=== PATIENT | female | born 2000 | race Caucasian/White ===

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

== ENCOUNTER → 2019-02-25 09:01 | Outpatient (CLI) | payer BC, SELFPAY ==
[2017-09-25 15:05] VITALS: BMI 21.2
--- NOTE | 2019-02-25 09:07 | US_ITS ---
STUDY: ULTRASOUND OF THE FEMALE PELVIS - COMPLETE REASON FOR EXAM: Female, 19 years old. Right lower quadrant pain. LMP: 02/01/2019 TECHNIQUE: Transabdominal TECHNICAL QUALITY: Adequate. COMPARISON: None. FINDINGS: The uterus is anteverted and is in a midline position. The uterus measures 6.5 x 3.9 x 2.4 cm. Normal uterine cervix. The endometrium measures 4 mm in thickness, and is hyperechoic. There is no demonstrated endometrial mass. There is no demonstrated myometrial mass. I.U.D. - The patient does not have an I.U.D. The right ovary is visualized. The right ovary measures 2.0 x 2.1 x 1.3 cm. There is no right ovarian cyst or ovarian mass. There is no visualized right adnexal mass or complex lesion. There is normal arterial and normal venous vascularity. The left ovary is visualized. The left ovary measures 1.9 x 2.4 x 1.6 cm. There is no left ovarian cyst or ovarian mass. There is no visualized left adnexal mass or complex lesion. There is normal arterial and normal venous vascularity. There is minimal fluid in the cul-de-sac. The pre void volume of the bladder was 353 ml. Normal bladder contour. Polycystic ovary disease: No. US/Pelvic (Non ) IMPRESSION: Normal female pelvis. Electronically Signed: Butch Sorensen MD at 10:53 EDT , Service support ,
--- NOTE | 2019-02-25 09:36 | US_ITS ---
STUDY: ABDOMINAL ULTRASOUND - RIGHT UPPER QUADRANT REASON FOR VISIT: Female, 19 years old. Right upper quadrant pain. TECHNIQUE: Ultrasound evaluation of the right upper quadrant was performed with real-time and static larose-scale imaging. TECHNICAL QUALITY: Adequate. COMPARISON: CT dated 09/23/2017 FINDINGS: Liver: The liver measures 13.3 cm. There is normal echogenicity of the liver. The bile ducts are within normal limits. There is hepatic color flow. The direction of portal flow is hepatopetal. There is no demonstrated mass lesion. Gallbladder: Normal distended gallbladder. The gallbladder wall measures 3 mm. There is a negative sonographic Rawls's sign. There is no pericholecystic fluid. There are no gallstones. Common Bile Duct (C.B.D.): The common bile duct measures 2 mm. Pancreas: Normal size of the head, body and tail of the pancreas. There is normal echogenicity of the pancreas. There is no demonstrated pancreatic mass or cyst. Right Kidney: Normal size of the right kidney. The right kidney measures 9.9 cm. Normal renal cortex. There is no demonstrated renal mass or cyst. There is a 5 mm nonobstructing right renal stone. There is no right hydronephrosis. US/Abdomen Limited IMPRESSION: 5 mm nonobstructing right renal stone. No hydronephrosis. Otherwise, unremarkable right upper quadrant ultrasound. Electronically Signed: Brian Guerrier, at 19:51 EDT Tel , Service support ,
== END ==
PROVIDERS: Family Provider Family Medicine; PCP Family Medicine; Referring Provider Family Medicine; Visit Provider Family Medicine
DX: R10.9 Unspecified abdominal pain (principal)
CPT/HCPCS: 76705; 76856; 93976; J7030; A4216

== ENCOUNTER → 2019-08-18 10:08 | Outpatient (CLI) | payer BC, SELFPAY ==
[2019-07-14 10:27] VITALS: BMI 21.2
--- NOTE | 2019-08-18 10:12 | MRI_ITS ---
STUDY: MRI BILATERAL HIPS T PELVIS REASON FOR EXAM: Right-sided pain with twisting motion, evaluate for sports hernia. TECHNIQUE: Standardized fat and water weighted pulse sequences were obtained in all 3 orthogonal planes. COMPARISON: None. FINDINGS: RIGHT HIP Normal hip joint without articular joint space narrowing. Normal right acetabulum. Normal right labrum. Normal right femoral head. Normal right femoral neck and intratrochanteric region. Normal right gluteus minimus, medius and iliopsoas tendons and distal insertions. Normal right superior and inferior pubic rami. Normal right pubic symphysis. There specifically is no secondary cleft or other demonstrated abnormality of the rectus abdominis-adductor longus aponeurosis to indicate sports hernia. Normal right ischial tuberosity. Normal origin of the right hamstring tendons. Normal visualized right iliac wing, sacroiliac joint, and sacral ala. There is no bone edema at the right superior iliac spine. Normal visualized soft tissue structures of the pelvis. LEFT HIP Normal left hip joint without articular joint space narrowing. Normal left acetabulum. Normal left labrum. Normal left femoral head. Normal left femoral neck and intratrochanteric region. Normal left gluteus minimus, medius and iliopsoas tendons and distal insertions. Normal left superior and inferior pubic rami. Normal left pubic symphysis. Normal left ischial tuberosity. Normal origin of the left hamstring tendons. Normal visualized left iliac wing, sacroiliac joint, and sacral ala. Normal visualized soft tissue structures of the pelvis. MRI/Pelvis (Routine) IMPRESSION: Normal MRI of the pelvis/bilateral hips without demonstrated tear of the rectus abdominis-adductor longus aponeurosis (no evidence of sports hernia). Electronically Signed: Saulo Clark MD at 10:09 EDT Tel , Service support ,
--- NOTE | 2019-08-18 10:12 | MRI_ITS ---
STUDY: MRI RIGHT HIP REASON FOR EXAM: Right-sided pain with twisting motion. TECHNIQUE: Standardized fat and water weighted pulse sequences were obtained in all 3 orthogonal planes. COMPARISON: None. FINDINGS: Normal hip joint without articular joint space narrowing. Normal acetabulum. Normal labrum. Normal femoral head. Normal femoral neck and intratrochanteric region. Normal gluteus minimus, medius and iliopsoas tendons and distal insertions. There is no trochanteric, iliopsoas or iliopectineal bursitis. Normal superior and inferior pubic rami. Normal pubic symphysis. Normal ischial tuberosity. Normal origin of the hamstring tendons. Normal visualized iliac wing, sacroiliac joint, and sacral ala. Normal visualized soft tissue structures of the pelvis. MRI/Lower Ext Joint Only (Routine) IMPRESSION: Normal MRI of the right hip. Electronically Signed: Saulo Clark MD at 10:10 EDT Tel , Service support ,
== END ==
PROVIDERS: Family Provider Family Medicine; PCP Family Medicine; Referring Provider Family Medicine; Visit Provider Family Medicine
DX: S39.81XA Other specified injuries of abdomen, initial encounter (principal); M86.9 Osteomyelitis, unspecified
CPT/HCPCS: 72195; 73721

== ENCOUNTER → 2020-06-22 17:06 | Outpatient (CLI) | payer BC, SELFPAY ==
[2020-03-07 17:29] VITALS: BMI 21.2
--- NOTE | 2020-06-22 17:11 | RAD_ITS ---
STUDY: X-RAY - LUMBAR SPINE REASON FOR EXAM: Female, 20 years old. PAIN DUE TO INJURY 2 WEEKS AGO. LOW BACK PAIN THAT SPREADS A LITTLE TO LEFT SIDE. TECHNIQUE: 5 view(s) of the lumbar spine were obtained. COMPARISON: None FINDINGS: Normal lumbar lordosis. There is no substantial scoliosis. There is a normal alignment of the vertebrae. Normal vertebral bodies and endplates. Normal disc space heights. The soft tissue structures are unremarkable. RAD/L/S Spine Min 4 Views IMPRESSION: Normal x-ray examination of the lumbar spine. Electronically Signed: Ahmet Nino DO at 17:42 EDT Tel [phone], Service support ,
--- NOTE | 2020-06-22 17:20 | RAD_ITS ---
STUDY: X-RAY - THORACIC SPINE REASON FOR EXAM: Female, 20 years old. PAIN DUE TO INJURY 2 WEEKS AGO. LOW BACK PAIN THAT SPREADS A LITTLE TO LEFT SIDE. TECHNIQUE: 3 view(s) of the thoracic spine were obtained. COMPARISON: None. FINDINGS: Normal kyphosis of the thoracic spine. There is trace upper thoracic scoliosis. Normal thoracic vertebrae and endplates. Normal disc space heights. The soft tissue structures are unremarkable. RAD/Thoracic Spine 3 Views IMPRESSION: No acute bony injury of the thoracic spine. Electronically Signed: Ahmet Nino DO at 17:40 EDT Tel [phone], Service support ,
== END ==
PROVIDERS: PCP Family Medicine; Referring Provider Family Medicine; Visit Provider Family Medicine
DX: M54.6 Pain in thoracic spine (principal)
CPT/HCPCS: 72072; 72110

== ENCOUNTER → 2020-07-25 09:51 | Outpatient (CLI) | payer BC, SELFPAY ==
[2020-03-07 17:29] VITALS: BMI 21.2
== END ==
PROVIDERS: PCP Family Medicine; Referring Provider Family Medicine; Visit Provider Family Medicine
DX: Z20.828 Contact with and (suspected) exposure to other viral communicable diseases (principal)
CPT/HCPCS: 87635; C9803; U0003

== ENCOUNTER → 2020-09-06 | Outpatient (CLI) | payer BC, SELFPAY ==
[2020-03-07 17:29] VITALS: BMI 21.2
[2020-09-12 15:37] LABS: HPV Reflexed? NOT INDICATED
== END | disposition home or self-care (01) ==
LOC: LABSPEC 13:50
PROVIDERS: PCP Family Medicine; Visit Provider Student in an Organized Health Care Education/Training Program
DX: Z12.4 Encounter for screening for malignant neoplasm of cervix (principal)
CPT/HCPCS: 88175; G0145

== ENCOUNTER 2021-03-13 08:22 | Outpatient (RCR) | payer BC, SELFPAY ==
[2020-03-07 17:29] VITALS: BMI 21.2
== END 2021-04-17 23:59 ==
LOC: IMMUN 08:22
PROVIDERS: PCP Family Medicine; Referring Provider Family Medicine; Visit Provider Family Medicine
DX: Z23 Encounter for immunization (principal)
CPT/HCPCS: 0001A; 91300

== ENCOUNTER → 2021-10-17 | Outpatient (CLI) | payer BC, SELFPAY | END | disposition home or self-care (01) | PROVIDERS: PCP Family Medicine; Referring Provider Family Medicine; Visit Provider Family Medicine | DX: Z20.822 Contact with and (suspected) exposure to COVID-19 (principal) | CPT/HCPCS: 87633; 87635; U0005; U0003 ==

== ENCOUNTER 2021-11-14 07:55 | Outpatient (CLI) | payer BC, SELFPAY | END 2021-11-14 23:59 | disposition short-term general hospital (02) | LOC: LABSPEC 11-15 09:04 | PROVIDERS: PCP Family Medicine; Visit Provider Family Medicine | DX: Z20.828 Contact with and (suspected) exposure to other viral communicable diseases (principal) | CPT/HCPCS: 87635; U0003; U0005 ==

== ENCOUNTER 2021-12-25 08:47 | Day surgery (SDC) | payer BC, SELFPAY ==
[2021-12-25] VITALS (7 sets, daily range): BP systolic 87–124; BP diastolic 46–72; PULSE 75–115; RESP 18; TEMP 36.4–37.1; O2SAT 97–100; BMI 22.8
--- NOTE | 2021-12-25 09:11 | PCM.HP.BLA ---
History and Physical Date of Admission: 12/25/21 21 F who presents to the office today for 5 wk f/u SIBO, IBS-D Budesonide helps with keeping stool formed so she is very pleased with that. Other symptoms persist. Was never able to get prescription digestive enzymes. Thought she wasn't supposed to take xifaxan. Less vomiting, was vomiting weekly. Vomited once since last visit, had migraine that day. Still has a daily headache; more severe SALDIVAR 1-2x per week needs to take something for the pain--takes 200-400 mg ibuprofen then; migraines not often, did have one this week--increases caffeine plus ibuprofen for migraine. Still has nausea constantly, since high school bas had nausea and frequent vomiting. The vomiting is usually first thing in morning, then face is swollen. With the more frequent vomiting this year, the facial swelling began with each episode of emesis, generalized facial swelling, redness (red dots). No pruritus. No hives. Left side pain is worse--left lower/mid abd, no radiating pain, feels like stabbing. Started on right side age 17, then moved to left side about a year ago. Just had the pain for a week constantly, always at least 2 days. Worse with exercise. No change with diet, no change with BM. Not cyclical with menses. Nausea is worse with the pain. Colonoscopy 2018, and EGD might have been same time; prior to that had EGD in 2014. Loud belches, frequent hiccups. Only very rare heartburn. Hx of C diff x 1 ROS Const Constitutional: Positive for fatigue and headache(s) Eyes Eyes: Positive for blurry vision ENT ENT: Positive for headache(s) Gastro GI: Positive for abdominal pain, belching, change in bowel habits, excessive flatus, nausea/dyspepsia and vomiting Neuro Neurology: Positive for headache(s) Psych Psychiatric: Positive for anxiety Endo Endocrine: Positive for fatigue Exam Const General: cooperative, healthy appearing, comfortable, no acute distress, well developed and well groomed Quality Reporting Tobacco Screening ([facility]) Smoking Status: Never smoker Assessment and Plan Assessment and Plan (1) Nausea vomiting and diarrhea: Status: Acute (2) Abdominal pain: Status: Acute Plan: 21 yr old female with long hx of chronic nausea, vomiting and diarrhea. Diarrhea has improved significantly with budesonide. Vomiting is better too, but nausea persists. Upper and lower endoscopy with Dr Valentin since symptoms persist Scopolamine patch for nausea/vomiting, discussed possible side effects Continue budesonide 6 mg daily since efficacious for her diarrhea f/u 2 wks after endoscopy Plan Details Other Medications: New: scopolamine base 1 patch transdermal Q72H 10 ea 0RF Refilled: budesonide ER 6 mg (2 x 3 mg) PO DAILY 60 ea 1RF I have re-examined the patient. There are no clinical changes since date of exam.
[2021-12-25 09:14] LABS: Internal QC Validated? YES +Cl - CLEAR BKGD; Pregnancy, Urine Negative Negative
--- NOTE | 2021-12-25 10:00 | IMM_PTH ---
PATIENT: ASHA SCALES LOC: EN U#:[id number] AGE/SX: ROOM: RE12/25/[address]: Dr. Nima Valentin DO : 2000 BED: DIS: 12/25/2021 SPEC #: [id number] RECD: 12/26/21 13:43 STATUS: CHLOE REQ #: [id number] MELISSA: 12/25/21 10:[address]: Nima Valentin DEPT: IMMUNOHISTOCHEMISTRY RECD BY: lAee Emerson ENTERED: 12/26/21 13:44 SP TYPE: IMMUNO OTHR DR: Dr. Richa Russell MD Tissues: B - Stomach, NOS Procedures: H Pylori (initial) [facility]YSICIAN [facility] INSTIT[facility] [address] [address] SPECIMEN INFORMATION: Tissue Source: B ? Antrum biopsy Clinical Info: Nausea, vomiting, diarrhea, abdominal pain Specimen Number: [id number] CPT code: 58343 METHODOLOGY: Deparaffinized sections of prefer/formalin-fixed tissue or PAP/DQ stained slides are incubated with monoclonal/polyclonal antibodies/oligonucleotide probes. Localization is made via biotin free immunoperoxidase method. Appropriate controls are performed and reacted as expected. Results on target cell population are indicated in the following table: RESULTS: ANTIBODY / CLONE RESULT Block B H Pylori (polyclonal) negative These tests were developed and their performance characteristics determined by [facility]. They may not have been cleared or approved by the U.S. Food and Drug Administration. The FDA has determined that such clearance or approval is not necessary. INTERPRETATION: B. Antrum biopsy: Negative for Helicobacter pylori organisms. SJ:rosa 12/27/2021
--- NOTE | 2021-12-25 10:00 | EGD_PTH ---
PATIENT: ASHA SCALES LOC: EN U#:[id number] AGE/SX: 21/ ROOM: RE12/25/[address]: Dr. Nima Valentin DO : 2000 BED: DIS: 12/25/2021 SPEC #: [id number] RECD: 12/25/21 13:39 STATUS: CHLOE REJuan F #: [id number] MELISSA: 12/25/21 10:[address]: Nima Valentin DEPT: SURGICAL PATHOLOGY RECD BY: Flor Hoskins ENTERED: 12/26/21 07:34 SP TYPE: EGD BIOPSY OT DR: Dr. Richa Russell MD Tissues: A - Duodenum, NOS B - Gastric mucous membrane C - Esophagus, NOS D - Ileum, NOS E - COLON BIOPSY Procedures: Special Stain Group II Surgery Specimen Level IV Alcian Blue/PAS (control) HEADER OPERATION: [place] [place] with biopsy PRE-OP DIAGNOSIS: Nausea, vomiting, diarrhea, abdominal pain TISSUE SUBMITTED: A ? Duodenum biopsy, B ? Antrum biopsy for histo and H. pylori, C ? Distal esophagus biopsy, D ? Terminal ileum biopsy, eosinophilic gastroenteritis, E ? Random colonic biopsy, eosinophilic gastroenteritis MICROSCOPIC DIAGNOSIS A. Duodenum, biopsy: Fragments of duodenal mucosa, no pathologic diagnosis. B. Antrum, biopsy: Mild gastritis. See microscopic description and comment. C. Distal esophagus, biopsy: Fragments of gastroesophageal mucosa with mild chronic inflammation. Intestinal metaplasia (goblet cell metaplasia) is not identified. See comment. D. Terminal ileum, biopsy: Fragments of small intestinal mucosa, no pathologic diagnosis. E. Colon, random biopsy: Fragments of colonic mucosa, no pathologic diagnosis. SJ:rosa 12/27/2021 COMMENT B. The results of immunohistochemistry for Helicobacter pylori will be reported separately ([id number]). C. Alcian blue/PAS stain with matched control is used in the evaluation of the specimen. MICROSCOPIC DESCRIPTION Slides are reviewed. B. The specimen shows fragments of gastric mucosa with chronic inflammatory cell infiltrates in the lamina propria consisting of lymphocytes and plasma cells, consistent with mild chronic gastritis. GROSS DESCRIPTION A - Received in fixative is one container labeled with the patient's name and designated duodenum biopsy. The specimen consists of multiple irregular fragments of light napoles soft tissue that in aggregate measure 1 x 0.5 x 0.1 cm. The specimen is totally submitted in one cassette. B - Received in fixative is one container labeled with the patient's name and designated antrum biopsy. The specimen consists of multiple irregular fragments of light napoles soft tissue that in aggregate measure 0.6 x 0.5 x 0.1 cm. The specimen is totally submitted in one cassette. C - Received in fixative is one container labeled with the patient's name and designated distal esophagus biopsy. The specimen consists of multiple irregular fragments of light napoles soft tissue that in aggregate measure 1 x 0.3 x 0.1 cm. The specimen is totally submitted in one cassette. D - Received in fixative is one container labeled with the patient's name and designated terminal ileum biopsy. The specimen consists of multiple irregular fragments of light napoles soft tissue that in aggregate measure 1 x 0.4 x 0.1 cm. The specimen is totally submitted in one cassette. E - Received in fixative is one container labeled with the patient's name and designated random colonic biopsy. The specimen consists of multiple irregular fragments of light napoles soft tissue that in aggregate measure 2.5 x 0.5 x 0.1 cm. The specimen is totally submitted in one cassette. / SJ:rg 12/26/2021 TC:3 CPT: 62539 x5, 54997
--- NOTE | 2021-12-25 10:37 | OP.EGD_ITS ---
Patient Name: Sol Holman Procedure Date: 12/25/2021 10:10 AM Date of : 2000 Age: 21 Procedure: Upper GI endoscopy Indications: Epigastric abdominal pain Providers: Nima Valentin DO Medicines: See the Anesthesia note for documentation of the administered medications Patient Profile: This is a 21 year old female. Refer to note in patient chart for documentation of history and physical. Patient has symptoms of acute epigastric abdominal pain. Complications: No immediate complications. Procedure: Pre-Anesthesia Assessment: - Prior to the procedure, a History and Physical was performed, and patient medications and allergies were reviewed. The patient is competent. The risks and benefits of the procedure and the sedation options and risks were discussed with the patient. All questions were answered and informed consent was obtained. Patient identification and proposed procedure were verified in the pre-procedure area. Mental Status Examination: alert and oriented. Airway Examination: normal oropharyngeal airway and neck mobility. Respiratory Examination: clear to auscultation. CV Examination: normal. Prophylactic Antibiotics: The patient does not require prophylactic antibiotics. Prior Anticoagulants: The patient has taken no previous anticoagulant or antiplatelet agents. ASA Grade Assessment: II - A patient with mild systemic disease. After reviewing the risks and benefits, the patient was deemed in satisfactory condition to undergo the procedure. The anesthesia plan was to use moderate sedation / analgesia (conscious sedation). Immediately prior to administration of medications, the patient was re-assessed for adequacy to receive sedatives. The heart rate, respiratory rate, oxygen saturations, blood pressure, adequacy of pulmonary ventilation, and response to care were monitored throughout the procedure. The physical status of the patient was re-assessed after the procedure. After obtaining informed consent, the endoscope was passed under direct vision. Throughout the procedure, the patient's blood pressure, pulse, and oxygen saturations were monitored continuously. The Colonoscope was introduced through the mouth, and advanced to the second part of duodenum. The upper GI endoscopy was accomplished without difficulty. The patient tolerated the procedure well. Moderate Sedation: Moderate (conscious) sedation was administered by the endoscopy nurse and supervised by the endoscopist. The following parameters were monitored: oxygen saturation, heart rate, blood pressure, and response to care. Total physician intraservice time was 2 minutes. Scope In: 10:23:15 AM Scope Out: 10:32:02 AM Total Procedure Duration Time 0 hours 8 minutes 47 seconds Findings: LA Grade A (one or more mucosal breaks less than 5 mm, not extending between tops of 2 mucosal folds) esophagitis with no bleeding was found 34 to 35 cm from the incisors. Biopsies were taken with a cold forceps for histology. Verification of patient identification for the specimen was done. Estimated blood loss was minimal. The entire examined stomach was normal. Biopsies were taken with a cold forceps for histology. Verification of patient identification for the specimen was done. Estimated blood loss was minimal. The second portion of the duodenum was normal. Biopsies were taken with a cold forceps for histology. Verification of patient identification for the specimen was done. Estimated blood loss was minimal. Impression: - LA Grade A reflux esophagitis. Biopsied. - Normal stomach. Biopsied. - Normal second portion of the duodenum. Biopsied. Recommendation: - Discharge patient to home. - Resume previous diet. - Return to my office. - Continue present medications. Procedure Code(s): --- Professional --- 50503, Esophagogastroduodenoscopy, flexible, transoral; with biopsy, single or multiple CPT copyright 2017 [employer]. All rights reserved. The codes documented in this report are preliminary and upon program supervisor review may be revised to meet current compliance requirements. Nima Valentin DO 12/25/2021 10:37:01 AM This report has been signed electronically. Number of Addenda: 1 Note Initiated On: 12/25/2021 10:10 AM Addendum Number: 1 Addendum Date: 07/28/2022 6:46:12 AM MAC was used for sedation during this procedure. Nima Valentin DO 07/28/2022 6:46:17 AM This report has been signed electronically.
--- NOTE | 2021-12-25 10:38 | OP.CCLET_ITS ---
07/28/2022 Richa Russell [place] [id number] [place] [address] Re : Upper GI endoscopy procedure for Sol Georgeaddiekip Dear Dr. Russell This procedure was performed on Thursday, December 25, 2021. My impressions and recommendations are as follows: Impressions : - LA Grade A reflux esophagitis. Biopsied. - Normal stomach. Biopsied. - Normal second portion of the duodenum. Biopsied. Recommendations : - Discharge patient to home. - Resume previous diet. - Return to my office. - Continue present medications. My findings are described in the full procedure note, which is enclosed. If I can be of further assistance, please feel free to contact me at . Sincerely, Nima Valentin, 12/25/2021 10:37:01 AM This report has been signed electronically.
--- NOTE | 2021-12-25 11:04 | OP.COLON_ITS ---
Patient Name: Sol Holman Procedure Date: 12/25/2021 10:32 AM Date of : 2000 Age: 21 Procedure: Colonoscopy Indications: Generalized abdominal pain, Incidental abdominal pain noted Providers: Nima Valentin DO Medicines: See the Anesthesia note for documentation of the administered medications Patient Profile: This is a 21 year old female. Refer to note in patient chart for documentation of history and physical. Patient has symptoms of acute epigastric abdominal pain. Last Colonoscopy: none. The patient's first colonoscopy is today. Complications: No immediate complications. Procedure: Pre-Anesthesia Assessment: - Prior to the procedure, a History and Physical was performed, and patient medications and allergies were reviewed. The patient is competent. The risks and benefits of the procedure and the sedation options and risks were discussed with the patient. All questions were answered and informed consent was obtained. Patient identification and proposed procedure were verified in the pre-procedure area. Mental Status Examination: alert and oriented. Airway Examination: normal oropharyngeal airway and neck mobility. Respiratory Examination: clear to auscultation. CV Examination: normal. Prophylactic Antibiotics: The patient does not require prophylactic antibiotics. Prior Anticoagulants: The patient has taken no previous anticoagulant or antiplatelet agents. ASA Grade Assessment: II - A patient with mild systemic disease. After reviewing the risks and benefits, the patient was deemed in satisfactory condition to undergo the procedure. The anesthesia plan was to use moderate sedation / analgesia (conscious sedation). Immediately prior to administration of medications, the patient was re-assessed for adequacy to receive sedatives. The heart rate, respiratory rate, oxygen saturations, blood pressure, adequacy of pulmonary ventilation, and response to care were monitored throughout the procedure. The physical status of the patient was re-assessed after the procedure. After I obtained informed consent, the scope was passed under direct vision. Throughout the procedure, the patient's blood pressure, pulse, and oxygen saturations were monitored continuously. The Colonoscope was introduced through the anus and advanced to the terminal ileum. The colonoscopy was performed without difficulty. The patient tolerated the procedure well. The quality of the bowel preparation was good. Moderate Sedation: Moderate (conscious) sedation was administered by the endoscopy nurse and supervised by the endoscopist. The patient's oxygen saturation, heart rate, blood pressure and response to care were monitored. Total physician intraservice time was 15 minutes. Scope In: 10:40:12 AM Scope Withdrawal Time 0 hours 11 minutes 39 seconds Scope Out: 10:57:40 AM Total Procedure Duration Time 0 hours 17 minutes 28 seconds Findings: The perianal and digital rectal examinations were normal. The colon (entire examined portion) appeared normal. Biopsies for histology were taken with a cold forceps from the entire colon for evaluation of microscopic colitis. Verification of patient identification for the specimen was done. Estimated blood loss was minimal. The terminal ileum appeared normal. Biopsies were taken with a cold forceps for histology. Verification of patient identification for the specimen was done. Estimated blood loss was minimal. Impression: - The entire examined colon is normal. Biopsied. - The examined portion of the ileum was normal. Biopsied. Recommendation: - Discharge patient to home. - Resume previous diet. - Continue present medications. - Await pathology results. - Repeat colonoscopy in 5 years for surveillance based on pathology results. - Return to GI office. Procedure Code(s): --- Professional --- 03944, Colonoscopy, flexible; with biopsy, single or multiple 06243, 59, Moderate sedation services provided by the same physician or other qualified health critical care nurse specialist performing the diagnostic or therapeutic service that the sedation supports, requiring the presence of an independent trained observer to assist in the monitoring of the patient's level of consciousness and physiological status; initial 15 minutes of intraservice time, patient age 5 years or older CPT copyright 2017 [employer]. All rights reserved. The codes documented in this report are preliminary and upon printing assistant review may be revised to meet current compliance requirements. Nima Valentin DO 12/25/2021 11:03:53 AM This report has been signed electronically. Number of Addenda: 1 Note Initiated On: 12/25/2021 10:32 AM Addendum Number: 1 Addendum Date: 07/28/2022 6:46:24 AM MAC was used for sedation during this procedure. Nima Valentin DO 07/28/2022 6:46:30 AM This report has been signed electronically.
--- NOTE | 2021-12-25 11:05 | OP.CCLET_ITS ---
07/28/2022 Richa Russell [facility] [address] [place] [address] Re : Colonoscopy procedure for Sol Holman Dear Dr. Russell This procedure was performed on Saturday, December 25, 2021. My impressions and recommendations are as follows: Impressions : - The entire examined colon is normal. Biopsied. - The examined portion of the ileum was normal. Biopsied. Recommendations : - Discharge patient to home. - Resume previous diet. - Continue present medications. - Await pathology results. - Repeat colonoscopy in 5 years for surveillance based on pathology results. - Return to GI office. My findings are described in the full procedure note, which is enclosed. If I can be of further assistance, please feel free to contact me at . Sincerely, Nima Valentin, 12/25/2021 11:03:53 AM This report has been signed electronically.
== END 2021-12-25 23:59 | disposition home or self-care (01) ==
LOC: EN 08:52 → AC 08:54
PROVIDERS: Anesthesiology; PCP Family Medicine; Referring Provider Family Medicine; Visit Provider Internal Medicine Gastroenterology
PROC: 0DJD8ZZ Inspection of Lower Intestinal Tract, Via Natural or Artificial Opening Endoscopic (ICD-10-PCS; CPT 45378; principal; 2021-12-25 09:55)
DX: K29.70 Gastritis, unspecified, without bleeding (principal); K21.00 Gastro-esophageal reflux disease with esophagitis, without bleeding; R11.2 Nausea with vomiting, unspecified; K58.0 Irritable bowel syndrome with diarrhea; F41.9 Anxiety disorder, unspecified; Z79.899 Other long term (current) drug therapy
CPT/HCPCS: 45380; 43239; 81025; 88305; 88313; 88342; J7120

== ENCOUNTER 2022-01-04 10:29 | Outpatient (CLI) | payer BC, SELFPAY ==
[2022-01-07 08:10] LABS: Endomysial Antibody IgA Negative (Negative)
[2022-01-07 09:08] LABS: Immunoglobulin A 106 mg/dL (87-352)
[2022-01-08 13:46] LABS: Deamidated Gliadin IgA 4 units (0-19); Deamidated Gliadin IgG 7 units (0-19); H. PYLORI STOOL AG Negative (Negative); Immunoglobulin A 106 mg/dL (87-352); t-Transglutaminase IgA <2 U/mL (0-3)
== END 2022-01-04 23:59 | disposition home or self-care (01) ==
LOC: LAB 10:31
PROVIDERS: PCP Family Medicine; Referring Provider Internal Medicine Gastroenterology; Visit Provider Internal Medicine Gastroenterology
DX: K29.60 Other gastritis without bleeding (principal)
CPT/HCPCS: 36415; 82784; 83516; 86255

== ENCOUNTER 2022-01-23 19:34 | Emergency (ER) | payer BC, SELFPAY ==
[2022-01-23 19:35] VITALS: BP 130/84; PULSE 117; RESP 18; TEMP 36.2; O2SAT 100; BMI 24.5
[2022-01-23 19:48] LABS: Color, Urine Red (Yellow); Glucose, Dipstick Normal (Normal); Ketone-Dipstick 50 mg/dl (Negative); Leukocyte Esterase-Dipstick 100 /ul (Negative); Mucous, Urine 0 SEEN /hpf (<or=2+); Nitrite-Dipstick Negative (Negative); Occult Blood-Urine 250 /ul (Negative); Protein-Dipstick 100 mg/dl (Negative); Urine Clarity Cloudy (Clear); Urine Urobilinogen Normal (Normal); Urine pH 6.5 (5.0 - 8.0)
[2022-01-23 19:55] LABS: Urine Bilirubin Dipstick 1 mg/dL (Negative)
[2022-01-23 19:57] LABS: Red Blood Cells-Urine > 100 SEEN /hpf (0-5); White Blood Cells 5-10 SEEN /hpf (0-5)
[2022-01-23 19:58] LABS: Bacteria 1+ /hpf (None Seen); Squamous Epithelial Cells - UA 0-5 SEEN /hpf (5-10)
[2022-01-23 19:59] LABS: Absolute Lymphocyte Count 2.42 X10^3/uL (0.83-4.51); Basophil# 0.04 X10^3/uL; Basophil% 0.5 % (0-1); Eosinophil# 0.02 X10^3/uL; Eosinophils% 0.2 % (0-5); Hematocrit 42.9 % (37-47); Hemoglobin 15.5 g/dL (12.0-15.0); Lymphocyte # 2.42 X10^3/ul (0.83-4.51); Lymphocyte % 27.3 % (19-41); Mean Corp Hgb Conc 36.1 g/dL (32-36); Mean Corpuscular Hgb 31.4 pg (27.0-32.0); Mean Platelet Vol. 10.3 fl (6.2-12.0); Monocyte# 0.38 X10^3/uL; Monocyte% 4.3 % (0-10); NRBC Flagged by Analyzer 0 % (0-5); Neutrophil # 5.96 X10^3/uL (2.7-7.7); Neutrophil % 67.4 % (47-70); Platelet Count 285 K/mm3 (150-450); RBC Distribution Width CV 11.7 % (11.6-14.6); RBC Distribution Width SD 37.6 fl (35.1-43.9); Red Blood Count 4.93 M/mm3 (4.2-5.4); White Blood Count 8.9 K/mm3 (4.4-11.0)
[2022-01-23 20:07] LABS: Internal QC Validated? YES +Cl - CLEAR BKGD; Pregnancy, Serum, hCG Quali. NEGATIVE Negative
[2022-01-23 20:11] LABS: Anion Gap 11 (5-15); BUN 11 mg/dL (7-18); BUN/Creat Ratio 9.3 RATIO (10-20); Calcium,Total 9.6 mg/dL (8.5-10.1); Chloride 107 mmol/L (98-107); Creatinine, Serum 1.18 mg/dL (0.55-1.02); EST Glomerular Filtration Rate 60 mL/min (>60); Est Glom Filt Rate - Afr Amer 73 mL/min (>60); Estimated Creatinine Clearance 56.43 ml/min; Glucose 114 mg/dL (74-106); Potassium 3.4 mmol/L (3.5-5.1); Sodium Level 139 mmol/L (136-145)
--- NOTE | 2022-01-23 20:34 | CT_ITS ---
EXAM: CT ABDOMEN AND PELVIS WITHOUT INTRAVENOUS CONTRAST CLINICAL INDICATION: Right flank pain TECHNIQUE: Helically acquired images were obtained of the abdomen and pelvis without intravenous contrast. CTDIvol = ( 6.12 ) mGy, DLP = ( 273.71 ) mGycm This CT exam was performed using one or more of the following dose reduction techniques: automated exposure control, adjustment of the mA and/or kV according to patient size, and/or use of iterative reconstruction technique. This report was created using TRA report generation technology. COMPARISON: 09/23/2017 FINDINGS: LOWER THORAX: Unremarkable. Lung bases are clear. No cardiomegaly. No significant pericardial effusion. ABDOMEN: LIVER: Unremarkable. Homogeneous. GALLBLADDER AND BILE DUCTS: No gallbladder distention or wall edema. No intra- or extrahepatic biliary ductal dilation. PANCREAS: Unremarkable. No focal cystic mass. SPLEEN: Unremarkable. Normal size without focal cystic or solid mass. ADRENALS: Unremarkable. No nodules. KIDNEYS AND URETERS: 2 mm left interpolar renal stone is nonobstructing. 3 mm right lower pole renal stone, nonobstructing. No other renal abnormalities. 4 mm right UPJ gallstone with very mild hydronephrosis associated. STOMACH AND BOWEL: Unremarkable. No stomach or bowel distention. No focal inflammatory change. PELVIS: APPENDIX: No evidence of acute appendicitis. BLADDER: Unremarkable. REPRODUCTIVE: Unremarkable as visualized. No mass. ABDOMEN and PELVIS: INTRAPERITONEAL SPACE: Unremarkable. No ascites or other fluid collection. No free air. BONES/JOINTS: Unremarkable. No suspicious lytic or blastic abnormality. SOFT TISSUES: Unremarkable. No discrete abdominal or pelvic wall hernia. VASCULATURE: Unremarkable. Abdominal aorta is non-dilated. LYMPH NODES: Unremarkable. No enlarged lymph nodes. CT/Abdomen/Pelvis without Cont IMPRESSION: 1. 4 mm right UPJ gallstone with very mild hydronephrosis associated. 2. 3 mm right lower pole stone, nonobstructing. 3. 2 mm left interpolar stone, nonobstructing. Electronically Signed: Luis F Dubois MD at 21:17 EDT ,
--- NOTE | 2022-01-23 20:45 | EX.ED.DYSGE1 ---
HPI History of Present Illness Chief Complaint: Flank Pain Informant: patient Onset/Context/Timing Onset: Today Context: Sudden Onset Timing: Continuous Quality: Sharp Location: Right flank Worsened by: Nothing Relieved by: Nothing Narrative Narrative: Patient presents with right flank pain that began today. Patient states it became worse all of a sudden approximately 1 hour prior to arrival. Patient describes her pain as sharp. Patient states her pain is localized to the right flank area. Patient states nothing makes it worse nothing makes it better. Patient noted some hematuria tonight when she came to the emergency department. Patient admits to some nausea but denies any vomiting. Patient denies any fevers or chills. [facility] Medical History Alcohol use Anxiety Belching Food intolerance Heartburn History of echocardiogram History of IBS Kidney stone Leg cramps Migraine headache Non-smoker Restless legs Home Medications norgestrel 0.3 mg-ethinyl estradiol 30 mcg tablet 1 tab PO DAILY 07/14/19 [History Last Taken Unknown] multivitamin 1 cap PO DAILY 12/24/21 [History Last Taken Unknown] pantoprazole 40 mg tablet,delayed release 40 mg PO BID #60 tab 12/27/21 [Rx Last Taken Unknown] sucralfate 100 mg/mL oral suspension 10 ml PO QAC #1000 ml 12/27/21 [Rx Last Taken Unknown] hyoscyamine sulfate 0.125 mg sublingual tablet 0.125 mg SUBLINGUAL BID #60 tab 01/08/22 [Rx Last Taken Unknown] hydrocodone-acetaminophen 1 tab PO Q6H PRN PRN 3 Days #10 tablet 01/23/22 [Rx Last Taken Unknown] Allergy/AdvReac Type Severity Reaction Status Date / Time amoxicillin [From Augmentin] Allergy Hives Verified 01/23/22 19:37 clavulanic acid Allergy Hives Verified 01/23/22 19:37 [From Augmentin] gluten AdvReac Upset Verified 01/23/22 19:37 Stomach Surgical History History of cystoscopy Hx of colonoscopy Hx of tonsillectomy Social History Smoking Status: Never smoker ROS ROS ED Constitutional Constitutional ED: Denies chills or fever(s) Eyes Eyes: Denies blurry vision or change in vision ENT ENT ED: Denies rhinorrhea or sore throat Cardiovascular Cardiovascular: Denies chest pain or palpitations Respiratory/Chest Respiratory/Chest: Denies cough or dyspnea Gastrointestinal Gastrointestinal: Reports abdominal pain; Denies nausea or vomiting Genitourinary Genitourinary ED: Reports hematuria; Denies dysuria Musculoskeletal Musculoskeletal: Reports back pain; Denies neck pain Integumentary Denies abscess or rash Neurologic Neurologic: Denies headache(s) or weakness Allergic/Immunologic Allergic/Immunologic ED: Denies mouth swelling or urticaria EXAM Physical Exam Const Vital Signs: 01/23/22 19:35 Temperature 97.1 F L Temperature Source Temporal Pulse Rate 117 H Respiratory Rate 18 Blood Pressure 130/84 H Blood Pressure Mean 99 Pulse Ox 100 Oxygen Delivery Method Room Air Positive well nourished and well developed General Appearance ED: well developed HEENT Reports moist mucous membranes Neck supple and no JVD Resp normal respiratory effort and clear to auscultation bilaterally Cardio regular rate, regular rhythm and no murmurs GI normal to inspection, nondistended, normoactive bowel sounds Palpation: soft and tender RLQ and RUQ; Negative for guarding or rebound tenderness present Back/Spine General Back: CVA tenderness right Extremity normal to inspection General Extremety ED: Negative for edema or tenderness General Extremity: Negative for edema Neuro oriented x3, CN's II-XII intact bilaterally and no sensory deficits noted Sensorium / Orientation: alert Motor Exam: strength 5/5 throughout Psych mental status grossly normal Skin no rashes or lesions noted MDM MDM MDM Narrative Medical decision making narrative: Patient was given IV fluids, morphine, and Zofran. CBC was within normal limits. Basic metabolic profile showed a slightly elevated creatinine of 1.18. Urinalysis shows red cloudy urine with occult blood of 250 and greater than 100 red blood cells. Leukocyte Estrace was 100 with 5-10 white blood cells. Serum hCG was negative. CT scan of the abdomen pelvis was obtained. There is a 4 mm right UPJ stone with very mild hydronephrosis. There is also a 3 mm calculus in the right lower pole and a 2 mm left lower pole calculus. These are not obstructing. This was interpreted by the radiologist and reviewed by myself. Patient is feeling better on reevaluation. Patient was given a prescription for [place]. Patient was instructed to drink plenty of fluids. Patient was instructed to follow-up with her primary care physician in 5 to 7 days. Patient states she has also seen Dr. Ascencio in the past. Patient was advised that she could follow-up with him as well. Patient understood and was agreeable with the plan. All questions were answered. Lab Data Attestation: I reviewed the patient's lab results. Labs: Laboratory Results - last 24 hr 01/23/22 01/23/22 01/23/22 19:40 19:50 19:50 WBC 8.9 RBC 4.93 Hgb 15.5 H Hct 42.9 MCV 87.0 MCH 31.4 MCHC 36.1 H RDW Std Deviation 37.6 RDW Coeff of Allison 11.7 Plt Count 285 MPV 10.3 Immature Gran % (Auto) 0.300 Neut % (Auto) 67.4 Lymph % (Auto) 27.3 [place] % (Auto) 4.3 Eos % (Auto) 0.2 Baso % (Auto) 0.5 Absolute Neuts (auto) 6.0 Absolute Lymphs (auto) 2.42 Nucleated RBC % 0 Sodium 139 Potassium 3.4 L Chloride 107 Carbon Dioxide 21.0 Anion Gap 11 BUN 11 Creatinine 1.18 H Estim Creat Clear Calc 56.43 Est GFR (MDRD) Af Amer 73 Est GFR (MDRD) Non-Af 60 BUN/Creatinine Ratio 9.3 L Glucose 114 H Calcium 9.6 Serum , Qual Urine Color Red Urine Clarity Cloudy Urine pH 6.5 Ur Specific [place] 1.020 Urine Protein 100 H Urine Glucose (UA) Normal Urine Ketones 50 H Urine Occult Blood 250 H Urine Nitrite Negative Urine Bilirubin 1 H Urine Urobilinogen Normal Ur Leukocyte Esterase 100 H Urine RBC > 100 SEEN Urine WBC 5-10 SEEN Ur Squamous Epith Cells 0-5 SEEN Urine Bacteria 1+ Urine Mucus 0 SEEN 01/23/22 19:50 WBC RBC Hgb Hct MCV MCH MCHC RDW Std Deviation RDW Coeff of Allison Plt Count MPV Immature Gran % (Auto) Neut % (Auto) Lymph % (Auto) [place] % (Auto) Eos % (Auto) Baso % (Auto) Absolute Neuts (auto) Absolute Lymphs (auto) Nucleated RBC % Sodium Potassium Chloride Carbon Dioxide Anion Gap BUN Creatinine Estim Creat Clear Calc Est GFR (MDRD) Af Amer Est GFR (MDRD) Non-Af BUN/Creatinine Ratio Glucose Calcium Serum , Qual NEGATIVE Urine Color Urine Clarity Urine pH Ur Specific Winston Urine Protein Urine Glucose (UA) Urine Ketones Urine Occult Blood Urine Nitrite Urine Bilirubin Urine Urobilinogen Ur Leukocyte Esterase Urine RBC Urine WBC Ur Squamous Epith Cells Urine Bacteria Urine Mucus Radiography Diagnostic Testing: Clinical Impression(s) from Imaging Studies Abdomen/Pelvis CT 01/23/22 20:34 IMPRESSION: 1. 4 mm right UPJ gallstone with very mild hydronephrosis associated. 2. 3 mm right lower pole stone, nonobstructing. 3. 2 mm left interpolar stone, nonobstructing. Electronically Signed: Luis F Dubois MD at 21:17 EDT , Discharge Plan Triage Chief Complaint: Flank Pain ED Provider: Vance Lou Dx/Rx/DC Orders Clinical Impression: Calculus of proximal right ureter Instructions: ED Kidney Stone w/ Colic Prescriptions: New hydrocodone-acetaminophen [hydrocodone-acetaminophen] 1 TABLET tablet 1 tab PO Q6H PRN PRN (Reason: Pain) 3 Days Qty: 10 RF: 0 No Action [place] (28) 0.3-30 mg-mcg tablet 1 tab PO DAILY RF: 0 hyoscyamine sulfate 0.125 mg tablet, sublingual 0.125 mg sublingual BID Qty: 60 RF: 2 multivitamin Capsule 1 cap PO DAILY RF: 0 sucralfate [Carafate] 100 mg/mL suspension 10 ml PO QAC Qty: 1000 RF: 0 pantoprazole [Protonix] 40 mg tablet,delayed release (DR/EC) 40 mg PO BID Qty: 60 RF: 2 Primary Care Provider: Richa Russell Referrals: Richa uRssell MD [Primary Care Provider] - 3-5 Days Shelton Ascencio MD [STAFF PHYSICIAN] - 3-5 Days Disposition Disposition: Home, Self Care
[2022-01-23] MEDS: Morphine 4 MG/ML Syringe IV (20:50)
[2022-01-23] MEDS: Ondansetron 4 MG/2 ML Vial IV (20:50)
== END 2022-01-23 22:26 | disposition home or self-care (01) ==
PROVIDERS: Emergency Provider Emergency Medicine; PCP Family Medicine; Visit Provider Emergency Medicine
DX: N13.2 Hydronephrosis with renal and ureteral calculous obstruction (principal); R31.9 Hematuria, unspecified; Z79.899 Other long term (current) drug therapy
CPT/HCPCS: 74176; 80048; 81001; 84703; 85025; 96374; 96375; 99282; J7030; A4216; J2405

== ENCOUNTER → 2022-02-28 | Outpatient (CLI) | payer BC, SELFPAY ==
[2022-02-28 13:41] LABS: Erythrocyte Sedimentation Rate 2 mm/hr (0-30)
[2022-02-28 13:43] LABS: Absolute Lymphocyte Count 1.79 X10^3/uL (0.83-4.51); Absolute Neutrophil Count 3.9 X10^3/uL (2.0-7.7); Basophil# 0.03 X10^3/uL; Basophil% 0.5 % (0-1); Eosinophil# 0.07 X10^3/uL; Eosinophils% 1.1 % (0-5); Hematocrit 42.9 % (37-47); Hemoglobin 14.5 g/dL (12.0-15.0); Lymphocyte # 1.79 X10^3/ul (0.83-4.51); Lymphocyte % 29.1 % (19-41); Mean Corp Hgb Conc 33.8 g/dL (32-36); Mean Corpuscular Hgb 31.1 pg (27.0-32.0); Mean Corpuscular Volume 92.1 fL (81-99); Mean Platelet Vol. 10.7 fl (6.2-12.0); Monocyte# 0.36 X10^3/uL; Monocyte% 5.8 % (0-10); NRBC Flagged by Analyzer 0 % (0-5); Neutrophil # 3.89 X10^3/uL (2.7-7.7); Neutrophil % 63.2 % (47-70); Platelet Count 251 K/mm3 (150-450); RBC Distribution Width SD 40.4 fl (35.1-43.9); Red Blood Count 4.66 M/mm3 (4.2-5.4); White Blood Count 6.2 K/mm3 (4.4-11.0)
[2022-02-28 14:12] LABS: ALB/GLOB Ratio 1.1 RATIO (0.9-2.4); AST(SGOT) 18 U/L (15-37); Alanine Aminotransfer ALT/SGPT 23 U/L (13-56); Albumin, Serum 3.8 g/dL (3.2-5.0); Alkaline Phosphatase 59 U/L (45-117); Amylase 62 U/L (25-115); Anion Gap 5 (5-15); BUN 13 mg/dL (7-18); BUN/Creat Ratio 15.1 RATIO (10-20); CRP 3.63 mg/L (0.0-3.0); Calcium,Total 9.3 mg/dL (8.5-10.1); Chloride 108 mmol/L (98-107); Creatinine, Serum 0.86 mg/dL (0.55-1.02); EST Glomerular Filtration Rate 87 mL/min (>60); Est Glom Filt Rate - Afr Amer 105 mL/min (>60); Globulin 3.6 g/dL (2.2-4.2); Glucose 79 mg/dL (74-106); Lipase 80 U/L (73-393); Potassium 3.8 mmol/L (3.5-5.1); Protein, Total 7.4 g/dL (6.4-8.2); Sodium Level 140 mmol/L (136-145)
[2022-03-03 16:09] LABS: Anti-Centromere B Ab <0.2 AI (0.0-0.9); Anti-Chromatin <0.2 AI (0.0-0.9); Anti-Jo <0.2 AI (0.0-0.9); Anti-Scleroderma-70 AB <0.2 AI (0.0-0.9); RNP Ab <0.2 AI (0.0-0.9); SJOGREN'S Anti-SS-A test < 0.2 AI (0.0-0.9); SJOGREN'S Anti-SS-B test < 0.2 AI (0.0-0.9); Smith Ab <0.2 AI (0.0-0.9)
[2022-03-03 17:25] LABS: Anti-dsDNA Ab <1 IU/mL (0-9)
== END | disposition home or self-care (01) ==
LOC: LAB 12:12
PROVIDERS: PCP Family Medicine; Referring Provider Nurse Practitioner Adult Health; Visit Provider Nurse Practitioner Adult Health
DX: R11.2 Nausea with vomiting, unspecified (principal); R19.7 Diarrhea, unspecified; R10.12 Left upper quadrant pain
CPT/HCPCS: 36415; 80053; 82150; 82248; 83690; 85025; 85652; 86140; 86225; 86235

== ENCOUNTER → 2022-03-15 | Outpatient (CLI) | payer BC, SELFPAY ==
[2022-03-17 15:18] LABS: Giardia Lamblia, Stool EIA Negative (Negative)
[2022-03-19 07:45] LABS: Calprotectin, Stool <16 ug/g (0-120); Fats, Neutral Normal (.); Fats, Total Normal (.)
== END | disposition home or self-care (01) ==
LOC: LABSPEC 08:22
PROVIDERS: PCP Family Medicine; Referring Provider Nurse Practitioner Adult Health; Visit Provider Nurse Practitioner Adult Health
DX: K52.9 Noninfective gastroenteritis and colitis, unspecified (principal); R10.12 Left upper quadrant pain
CPT/HCPCS: 82705; 83630; 83993; 87177; 87209; 87329; 87506

== ENCOUNTER → 2022-03-18 | Outpatient (CLI) | payer BC, SELFPAY ==
--- NOTE | 2022-03-18 14:37 | CT_ITS ---
STUDY: CT ABDOMEN AND PELVIS WITH CONTRAST REASON FOR EXAM: Female, 22 years old. Chronic diarrhea. Abdominal pain. RADIATION DOSAGE (If Supplied By Facility): DLP = ( 345.91 ) mGycm TECHNIQUE: Transaxial images were obtained from the dome of the diaphragm to the symphysis pubis with oral contrast. 100 ml of Readi-CAT and amp; 100mL Isovue-300 contrast was administered. Sagittal and coronal images were reconstructed. Individualized dose optimization techniques were used for this CT. COMPARISON: CT abdomen pelvis 01/24/2020 FINDINGS: The visualized lung bases are clear. The visualized portions of the heart and pericardium are within normal limits. There are no calcified gallstones present. The liver is within normal limits. There are no suspicious hepatic lesions. The spleen is normal in size. The pancreas is within normal limits. The adrenal glands are within normal limits. There are no obstructing renal stones. There is no hydronephrosis. There are no focal renal lesions. The stomach is mild to moderately distended with contrast and gas-containing density at the body. There is no bowel obstruction or inflammation. The appendix is not visualized, but there are no findings to suggest acute appendicitis. The aorta is normal in caliber. There is no abdominal or pelvic free air, free fluid, fluid collection or lymphadenopathy. There are no destructive osseous lesions. CT/Abdomen/Pelvis WITH Contrast IMPRESSION: Mild to moderate gastric distention with contrast and bezoar versus food. Clinical correlation is recommended. Electronically Signed: Jared Latham, at 15:01 EDT ,
== END | disposition home or self-care (01) ==
LOC: CT 14:30
PROVIDERS: PCP Family Medicine; Referring Provider Nurse Practitioner Adult Health; Visit Provider Nurse Practitioner Adult Health
DX: R10.12 Left upper quadrant pain (principal); K52.9 Noninfective gastroenteritis and colitis, unspecified
CPT/HCPCS: 74177; Q9967

== ENCOUNTER → 2022-04-08 | Outpatient (CLI) | payer BC, SELFPAY ==
--- NOTE | 2022-04-08 10:23 | NM_ITS ---
CLINICAL: Retained food in the stomach, abdominal pain GASTRIC EMPTYING-SULFUR COLLOID TECHNIQUE: The patient was orally administered 1.1 mCi of Tc-sulfur colloid in oatmeal. Gamma camera imaging acquisitions at 1-60 minutes post radiopharmaceutical administration was performed. COMPARISON STUDIES : NM - None. CR - Not available for review at this time. CT - Not available for review at this time. MR - Not available for review at this time. FINDINGS: There is normal filling and emptying of the stomach. No gastroesophageal reflux with normal passage into the small bowel. T 1/2 measures 45, within normal limits. NM/Gastric Emptying Study IMPRESSION: Normal gastric emptying nuclear medicine scan. Electronically Signed: Ian Oviedo MD ([place]) at 12:32 EDT ,
== END | disposition home or self-care (01) ==
LOC: NM 10:21
PROVIDERS: PCP Family Medicine; Referring Provider Nurse Practitioner Adult Health; Visit Provider Nurse Practitioner Adult Health
DX: K31.89 Other diseases of stomach and duodenum (principal)
CPT/HCPCS: 78264; A9541

== ENCOUNTER → 2022-12-18 | Outpatient (CLI) | payer BC, SELFPAY ==
[2022-12-26 18:45] LABS: HPV Reflexed? NOT INDICATED
== END | disposition home or self-care (01) ==
LOC: LABSPEC 16:52
PROVIDERS: PCP Family Medicine; Referring Provider Obstetrics & Gynecology; Visit Provider Obstetrics & Gynecology
DX: Z12.4 Encounter for screening for malignant neoplasm of cervix (principal)
CPT/HCPCS: 88175; G0145

== ENCOUNTER → 2023-04-21 | Outpatient (CLI) | payer BC, SELFPAY ==
--- NOTE | 2023-04-21 15:30 | RAD_ITS ---
EXAM: XR ABDOMEN, 1 VIEW CLINICAL INDICATION: KUB TECHNIQUE: Frontal supine view of the abdomen/pelvis. COMPARISON: No relevant prior studies available. FINDINGS: LOWER THORAX: No acute pathology. GASTROINTESTINAL TRACT: Unremarkable. Non-obstructive. No bowel or stomach distention. ORGANS: Unremarkable as visualized. No organomegaly. No abnormal calcifications. BONES/JOINTS: No acute pathology. SOFT TISSUES: No acute pathology. RAD/Abdomen Single View IMPRESSION: Non-obstructive bowel gas pattern. Electronically Signed: Javier Martinez MD at 3:11 EDT ,
== END | disposition home or self-care (01) ==
LOC: RAD 15:25
PROVIDERS: PCP Family Medicine; Referring Provider Urology; Visit Provider Urology
DX: Z87.442 Personal history of urinary calculi (principal)
CPT/HCPCS: 74018

== ENCOUNTER 2024-03-06 19:08 | Inpatient (IN) | payer BC, SELFPAY ==
[2024-03-06 19:23] VITALS: BMI 28.5
[2024-03-06 19:36] LABS: Absolute Lymphocyte Count 3.16 X10^3/uL (0.83-4.51); Absolute Neutrophil Count 8.1 X10^3/uL (2.0-7.7); Basophil# 0.06 X10^3/uL; Basophil% 0.5 % (0-1); Eosinophil# 0.08 X10^3/uL; Eosinophils% 0.7 % (0-5); Hematocrit 37.4 % (37-47); Hemoglobin 13.2 g/dL (12.0-15.0); Lymphocyte # 3.16 X10^3/ul (0.83-4.51); Lymphocyte % 26.1 % (19-41); Mean Corp Hgb Conc 35.3 g/dL (32-36); Mean Corpuscular Hgb 31.9 pg (27.0-32.0); Mean Corpuscular Volume 90.3 fL (81-99); Mean Platelet Vol. 11.8 fl (6.2-12.0); Monocyte# 0.66 X10^3/uL; Monocyte% 5.4 % (0-10); NRBC Flagged by Analyzer 0 % (0-5); Neutrophil # 8.11 X10^3/uL (2.7-7.7); Neutrophil % 66.9 % (47-70); Platelet Count 183 K/mm3 (150-450); RBC Distribution Width CV 12.7 % (11.6-14.6); Red Blood Count 4.14 M/mm3 (4.2-5.4); White Blood Count 12.1 K/mm3 (4.4-11.0)
--- NOTE | 2024-03-06 19:55 | PCM.HP.OB ---
HPI - General General Date of Admission: 03/06/24 HPI Narrative ASHA SCALES, is a 24 F who presents for induction. Maternal Data Information Final DESTINI: 03/28/24 Gestational age: 36&6 PFSH PFSH Medical History Abdominal pain Anxiety Aphthous stomatitis Candidiasis of mouth Chronic diarrhea Diarrhea Heartburn History of echocardiogram History of IBS IBS (irritable bowel syndrome) Intestinal angina Kidney stone Leg cramps Lymphocytic gastritis Migraine headache Non-smoker Restless legs Small intestinal bacterial overgrowth Home Medications multivitamin 1 cap PO DAILY 12/24/21 [History Last Taken Unknown] Allergy/AdvReac Type Severity Reaction Status Date / Time amoxicillin [From Augmentin] Allergy Hives Verified 04/07/23 08:05 clavulanic acid Allergy Hives Verified 04/07/23 08:05 [From Augmentin] gluten AdvReac Upset Verified 04/07/23 08:05 Stomach Surgical History History of cystoscopy Hx of colonoscopy Hx of tonsillectomy Social History Smoking Status: Never smoker History Elective abortions Hx Para 0 Spontaneous abortions Hx # Term Pregnancies Ectopic pregnancies Hx # Pregnancies Multiple births # of living children NST FHR Rate Baby A Baseline: 135 Variability:: Moderate Accelerations:: 15 x 15 Decelerations:: None Uterine Activity:: Irregular Vital Signs Vital Signs Vital Signs: Weight Weight: 150 lb 12.8 oz Body Mass Index (BMI) 28.5 Physical Exam Const alert, oriented x3 and no apparent distress GI soft to palpation, non-tender and non-distended Inspection: gravid external exam normal Narrative: cvx - 1/80/-2, intracervical kaur placed without difficulty Extremity normal to inspection Labs Labs Labs: Blood Type Pending Antibody Screen Pending Hct 37.4 % (37-47) Hgb 13.2 g/dL (12.0-15.0) Syphilis Total Ab Pending Miscellaneous Test Assessment & Plan (1) IUGR (intrauterine growth restriction): COMMENT: 24yo @ 36&6 PLAN: Plan Admit to L&D Proceed with IOL for IUGR with EFW less than 5% Intracervical kaur placed & will start pitocin later GBS negative Patient with adequate pelvis Pain - epidural as desired Routine care
[2024-03-06 20:00] VITALS: BP 129/88; PULSE 86; RESP 16; TEMP 36.9
[2024-03-06] MEDS: Lactated Ringers 1,000 ML 50 ML IV (20:20)
[2024-03-06] MEDS: 0.9% Normal Saline Single 100 ML IV.SOLN. INTRA-UTER (20:20)
[2024-03-06 20:22] LABS: Syphilis Antibodies Non-reactive
[2024-03-07] VITALS (76 sets, daily range): BP systolic 94–154; BP diastolic 56–87; PULSE 66–113; RESP 16; TEMP 36.8–37; O2SAT 66–100
[2024-03-07] MEDS: Oxytocin 15 Units/NS 250ml 15 UNITS/250 ML IV.SOLN 2 UNITS IV (00:36)
[2024-03-07] MEDS: Ondansetron 4 MG/2 ML Vial IV ×2 (06:43→15:50)
[2024-03-07] MEDS: Acetaminophen 500 MG Tablet PO ×2 (07:36→15:50)
--- NOTE | 2024-03-07 08:19 | PCM.PN.OB ---
Subjective Subjective Sitting up in bed, at bedside, coping with contractions. Objective Data Objective Data Vital Signs: Vital Signs Temp Pulse Resp BP Pulse Ox 98.5 F 82 16 122/80 H 99 03/07/24 04:34 03/07/24 07:23 03/07/24 04:34 03/07/24 07:23 03/07/24 04:32 Weight: 150 lb 12.8 oz Body Mass Index (BMI) 28.5 Intake & Output: Intake and Output for Last 24 Hours 03/05/24 03/06/24 03/07/24 23:59 23:59 23:59 Intake Total 42.00 / 42.00 Balance 42.00 / 42.00 Lab / Micro Data 03/06/24 19:30 Labs: Laboratory Results - last 24 hr 03/06/24 19:30: WBC 12.1 H, RBC 4.14 L, Hgb 13.2, Hct 37.4, MCV 90.3, MCH 31.9, MCHC 35.3, RDW Std Deviation 42.0, RDW Coeff of Allison 12.7, Plt Count 183, MPV 11.8, Immature Gran % (Auto) 0.400, Neut % (Auto) 66.9, Lymph % (Auto) 26.1, [place] % (Auto) 5.4, Eos % (Auto) 0.7, Baso % (Auto) 0.5, Absolute Neuts (auto) 8.1 H, Absolute Lymphs (auto) 3.16, Nucleated RBC % 0, Syphilis Total Ab Non-reactive, Blood Type O NEGATIVE, Antibody Screen POSITIVE, Antibody Identification ANTI-D Physical Exam Manual OB Exam: presentation cephalic, dilated 4.5cm, effaced 80%, station -1 and other BBOW NST FHR Rate Baby A Baseline: 135 Variability:: Moderate Decelerations:: None FHR Category:: Category I Uterine Activity:: Every 2 minutes, strong Assessment & Plan (1) IUGR (intrauterine growth restriction): COMMENT: 24yo @ 36&6 (2) Encounter for induction of labor: PLAN: Plan 1) Continue with active management, pitocin per protocol 2) Declines AROM, would like labor to progress with spontaneous rupture if possible. 3) Pain management upon request 4) [facility] physician, notified of patient status and of above assessment and plan
[2024-03-07] MEDS: Lactated Ringers 1,000 ML 200 ML IV ×2 (12:06→15:53)
[2024-03-07] MEDS: LACTATED RINGERS 500 ML 999 ML IV ×2 (12:39→16:58)
[2024-03-07] MEDS: Metoclopramide 10 MG/2 ML Vial 5 MG IV (16:38)
[2024-03-07] MEDS: fentaNYL-bupivacaine (epidural) 100 ML BAG EPIDURAL (18:21)
--- NOTE | 2024-03-07 20:58 | PLAC_PTH ---
PATIENT: ASHA SCALES LOC: WP U#:[id number] AGE/SX: 24/F ROOM: WP003 RE03/06/[address]: Verito Bledsoe CNM : 2000 BED: 1 DIS: 03/09/2024 SPEC #: [id number] RECD: 03/08/24 01:02 STATUS: CHLOE REJuan F #: [id number] MELISSA: 03/07/24 20:[address]: Verito Bledsoe DEPT: SURGICAL PATHOLOGY RECD BY: Flor Hoskins ENTERED: 03/08/24 07:45 SP TYPE: PLACENTA OTHR DR: Dr. Richa Russell MD Tissues: Placenta, NOS Procedures: Surgery Specimen Level V HEADER OPERATION: Vaginal delivery PRE-OP DIAGNOSIS: IUGR TISSUE SUBMITTED: Placenta MICROSCOPIC DIAGNOSIS Pugh placenta (272 gm): Umbilical cord - Trivascular with no evidence of inflammation. Placental membranes - Mild acute chorionitis and deciduitis. Placental disc - Remote infarcts, Teney Grady change and mild increase in intraparenchymal mild increase in intraparenchymal microalcifications. AM: 03/09/24 MICROSCOPIC DESCRIPTION Slides are reviewed. GROSS DESCRIPTION SPECIMEN: PLACENTA / CLINICAL INFORMATION: A. Weight: 2.4 kg B. Gestational Age: 37 weeks C. Sex: Male PLACENTAL WEIGHT (POST FIXATION): 272 gm PLACENTAL DIMENSIONS: 21.0 x 16.0 x 2.5 cm PLACENTAL SHAPE: Usual ovoid PLACENTAL WEIGHT FOR GESTATIONAL AGE: Below 10% percentile MEMBRANES - Present A. Insertion: Marginal B. Site of rupture from edge: at edge of placental disc C. Color of membrane: Napoles-larose D. Abnormalities: None UMBILICAL CORD - Present A. Color: Napoles-larose B. Insertion: Eccentric C. Length: 22.0 cm D. Diameter: 1.2 cm E. Number of vessels: Three F. Abnormalities: None PLACENTAL DISC - Present A. Color of surface: Napoles-larose B. surface abnormalities: None C. Maternal cotyledons: Intact with minimal tears D. Attached retro placental clot: No clot E. Cut surface: Dark red and spongy F. Lesions: Two napoles-white plaque like lesions ranging in size from 1.5 to 2.5cm. G. Separate clot: Absent SECTIONS SUBMITTED: Dr. Mcdowell 1. Umbilical cord ( end notched) 2. Umbilical cord, placental end 3. Membrane roll 4. Placental disc, and maternal surfaces 5. Placental disc, and maternal surfaces, lesion 6. Placental disc, and maternal surfaces, lesion AM/mr 03/08/24 TC:2 CPT: 09656
[2024-03-07] MEDS: Oxytocin 10 UNITS/ML Vial IM (21:05)
--- NOTE | 2024-03-07 21:12 | EX.PCM.OBRPT ---
Assessment & Plan (1) Vaginal delivery: (2) Lactating mother: Maternal Data Information DESTINI Calculator Estimated Delivery Date Method Current WG Current Estimate 03/28/24 Manual 37w 0d Vaginal Delivery Maternal Presentation Maternal Presentation: Active Labor Type of Induction: Pitocin and Herrera Bulb Medical Reason for Induction: - (iugr) Operative Information Date of Procedure: 03/07/24 Pre-Operative Diagnosis: IUGR, Induction of Labor Post-Operative Diagnosis: Surgery / Procedure Performed: Spontaneous Vaginal Delivery Type of Anesthesia: Epidural Estimated Blood Loss: 400ml Time of Delivery: 20:58 Findings Description of Procedure: Progressed to complete with urge to push. Epidural for pain management. of viable male over intact perineum. APGARS 9,9 respectively. head delivered with body immediately forthcoming. Placed on maternal abdomen, strong cry. Mouth and nares suctioned for secretions. Pitocin started for active 3rd stage management. Cord doubly clamped and cut by FOB after pulsations ceased, delayed cord clamping. Placenta delivered intact via ferrer, 3 vessel cord intact. Perineum inspected and revealed intact. Fundus firm and hemostasis achieved. EBL 400ml. Mom and baby stable, planning to breastfeed. Family bonding well. notified of delivery. Presentation: Vertex and KAUSHAL Amniotic Membrane Rupture Type: Spontaneous Amniotic Fluid Description: Clear Placental Delivery Description: Spontaneous Placenta Disposition: [facility] Cord Vessel Description: 3 Vessels Cord Entanglement: None Infant A Gender: Male (1 minute): 9 (5 minute): 9 Delayed Cord Clamping: Yes Post Vaginal Delivery Medications Given After Delivery: IV Pitocin, IM Pitocin and IM Methergin Episiotomy Description: None Laceration: None Complication Complications: None
[2024-03-07] MEDS: Oxytocin 15 Units/NS 250ml 15 UNITS/250 ML IV.SOLN 83 UNITS IV (22:42)
[2024-03-07] MEDS: Methylergonovine 0.2 MG/ML Ampul IM (22:44)
[2024-03-08 01:01] LABS: Pathology Specimen OB SEE PATHOLOGY REPORT
[2024-03-08] MEDS: Ibuprofen 600 MG Tablet PO ×3 (01:52→20:35)
[2024-03-08 02:01] LABS: Absolute Lymphocyte Count 2.29 X10^3/uL (0.83-4.51); Absolute Neutrophil Count 18.5 X10^3/uL (2.0-7.7); Basophil# 0.07 X10^3/uL; Basophil% 0.3 % (0-1); Eosinophil# 0.02 X10^3/uL; Eosinophils% 0.1 % (0-5); Hematocrit 33.6 % (37-47); Hemoglobin 11.7 g/dL (12.0-15.0); Lymphocyte # 2.29 X10^3/ul (0.83-4.51); Lymphocyte % 10.4 % (19-41); Mean Corp Hgb Conc 34.8 g/dL (32-36); Mean Corpuscular Volume 91.8 fL (81-99); Mean Platelet Vol. 11.8 fl (6.2-12.0); Monocyte% 4.5 % (0-10); NRBC Flagged by Analyzer 0 % (0-5); Neutrophil # 18.48 X10^3/uL (2.7-7.7); Neutrophil % 83.9 % (47-70); Platelet Count 131 K/mm3 (150-450); RBC Distribution Width CV 12.8 % (11.6-14.6); RBC Distribution Width SD 42.6 fl (35.1-43.9); Red Blood Count 3.66 M/mm3 (4.2-5.4)
[2024-03-08 02:55] VITALS: BP 111/95; PULSE 87; RESP 16; TEMP 36.3; O2SAT 97
[2024-03-08] MEDS: Rho(D) Immune Globulin 300 MCG (1500 Unit) Syringe IV (05:30)
--- NOTE | 2024-03-08 08:04 | PN.OBGYN_ITS ---
Subjective Subjective Denies complaints Objective Data Objective Data Vital Signs: Vital Signs Temp Pulse Resp BP Pulse Ox O2 Del Method 97.4 F L 87 16 111/95 H 97 Room Air 03/08/24 02:55 03/08/24 02:55 03/08/24 02:55 03/08/24 02:55 03/08/24 02:55 03/08/24 02:55 Oxygen Delivery Method Room Air Weight: 150 lb 12.8 oz Body Mass Index (BMI) 28.5 Intake & Output: Intake and Output for Last 24 Hours 03/06/24 03/07/24 03/08/24 23:59 23:59 23:59 Intake Total 3950.67 / 3950.67 232.4 / 232.4 Output Total 600 / 600 650 / 650 Balance 3350.67 / 3350.67 -417.6 / -417.6 Lab / Micro Data 03/08/24 01:50 Labs: Laboratory Results - last 24 hr 03/08/24 01:50: WBC 22.0 H, RBC 3.66 L, Hgb 11.7 L, Hct 33.6 L, MCV 91.8, MCH 32.0, MCHC 34.8, RDW Std Deviation 42.6, RDW Coeff of Allison 12.8, Plt Count 131 L, MPV 11.8, Immature Gran % (Auto) 0.800, Neut % (Auto) 83.9 H, Lymph % (Auto) 10.4 L, [place] % (Auto) 4.5, Eos % (Auto) 0.1, Baso % (Auto) 0.3, Absolute Neuts (auto) 18.5 H, Absolute Lymphs (auto) 2.29, Nucleated RBC % 0, Screen NEGATIVE, Baby's Blood Type O POSITIVE, Baby's EDGARDO NEGATIVE Physical Exam Const alert, oriented x3 and no apparent distress HEENT normocephalic GI soft to palpation, non-tender and non-distended GI Narrative: fundus firm, mid & below umbilicus Extremity normal to inspection and no calf tenderness Assessment & Plan (1) Vaginal delivery: COMMENT: PPD#1 (2) Lactating mother: PLAN: Plan Routine care
[2024-03-08 08:23] VITALS: BP 123/83; PULSE 83; RESP 18; TEMP 36.2
[2024-03-08 12:00] VITALS: BP 117/82; PULSE 72; RESP 16; TEMP 36.5
[2024-03-08 16:00] VITALS: BP 113/72; PULSE 65; RESP 16; TEMP 36.1
[2024-03-08 20:36] VITALS: BP 126/92; PULSE 75; RESP 16; TEMP 36.7; O2SAT 100
[2024-03-09 02:05] VITALS: BP 113/67; PULSE 66; RESP 16; TEMP 36.1; O2SAT 99
--- NOTE | 2024-03-09 08:31 | PCM.DC.SUM ---
Providers Date of Admission: 03/06/24 Primary Care Physician: Dr. Richa Russell MD Reason For Visit: VAGINAL DELIVERY Diagnosis Discharge Diagnosis (1) Vaginal delivery: Status: Acute Code(s): O80 - Encounter for full-term uncomplicated delivery (2) Lactating mother: Status: Acute Code(s): Z39.1 - Encounter for care and examination of lactating mother Medications at Discharge Home Medications multivitamin 1 cap PO DAILY 12/24/21 Hospital Course Operations None Procedures None Summary of Care Provided Minutes Spent on Discharge: 15 Hospital Course: Patient had . Hospital course was uneventful. Physical Exam Narrative Patient seen at bedside. Ambulating in room. Voiding without difficulty and pain is controlled. with minimal support. Desires discharge home today. Const alert, oriented x3 and no apparent distress HEENT normocephalic GI soft to palpation, non-tender and non-distended GI Narrative: fundus firm, mid & below umbilicus Extremity normal to inspection and no calf tenderness Weight / BMI Weight Weight: 150 lb 12.8 oz Body Mass Index (BMI) 28.5 ABG / Lab / Microbiology Data 03/08/24 01:50 D/C Instructions Discharge Diet: No restrictions May resume sexual activity in: 6-8 weeks Weight Bearing Status: Weight bearing as tolerated Call your doctor if you observe: Fever of 101 or Higher, Inability to urinate, Using more than 1 pad per hour, Shortness of breath, Chest pain, Calf discomfort and Uncontrolled pain Please Follow Up With: Angela Penaloza CNM When: 2 weeks virtual visit/ 6 weeks in office Meaningful Use Info Meaningful Use Meaningful Use Diagnoses (Choose all that apply): None applicable Ischemic Stroke Statin Dosing Therapy Reference: STATIN DOSE THERAPY REFERENCE: * Patients > 75 years receive moderate or high dose statin therapy. * Patients 75 years or YOUNGER should receive HIGH intensity statin dose unless contraindicated. You will be required to document reason for non-treatment if statin daily dose does not meet guidelines. HIGH DOSE STATIN THERAPY DAILY Atorvastatin > than or = to 40 mg Rosuvastatin > than or = to 20 mg Amlodipine + Atorvastatin > than or = to 2.5/40 mg Ezetimibe + Simvastatin 10/80 mg Simvastatin 80mg Discharge Plan Admission Admit Date/Time: 03/06/24 19:08 Primary Reason for Your Visit: Labor and Delivery Attending Provider: Verito Bledsoe Primary Care Provider: Richa Russell Discharge Orders/Prescriptions Prescriptions: No Action multivitamin Capsule 1 cap PO DAILY Referrals / Follow Up: Angela Penaloza CNM [Med Staff - [facility] Practice Prof] - Richa Russell MD [Primary Care Provider] - Disposition Disposition (needs filled in before D/C Order can be placed): Home, Self Care
[2024-03-09 09:33] VITALS: BP 126/81; PULSE 94; RESP 16; TEMP 36.3; O2SAT 100
[2024-03-09 11:00] VITALS: RESP 16
--- NOTE | 2024-03-09 12:04 | CASEMGMT ---
Social Work Assessment Labor and Delivery Unit Patient Address: [place] [address] Phone number: [phone] Date of Referral: 03/08/24 Time of Referral:? [phone] Referred By: Verito Bledsoe Date of Intervention: ??03/09/24 Time of Intervention:? 09 Reason for Referral:? anxiety Sw completed chart review and acknowledges social work consult due to maternal mental health history positive for anxiety. Sw presented to bedside and introduced self to mother of baby (MOB- Sol) and father of baby (FOB-Hemal). Sw explained sw role and completed psychosocial assessment. History obtained from: medical records, MOB and FOB Household composition: Currently residing in the family home is MOB, FOB and now baby. Parents deny any issues or concerns with housing. Patient's parent/guardian status:? ?AYSHA states that she and FOAngelito met at college and have been together for 6 years, for 4. No concerns reported of domestic violence or intimate partner violence. This is first baby for both parents. FOB observed to be supportive and attentive to MOB. Medical History: AYSHA is 24 year old female who is 1, para 0-now 1 following labor and delivery of . AYSHA received routine care during with [facility]. AYSHA presented to hospital for scheduled induction and delivered baby via vaginal delivery on 03/07/24 at 37 weeks gestation. Baby boy, named Alan Galvan, was born weighing 5lb 5oz with apgars of 8 and 9 at one and five minutes of life, respectfully. Baby will be followed by Dr. Dumont for pediatrics. AYSHA states that she is breast feeding and has a follow up appointment with outpatient . ? Educational Status:? MOB obtained her Masters degree and SHANELL has a Bachelors. No concerns with reading, learning or comprehension. Financial Status: Both parents are gainfully employed outside of the home. FOB works for [employer] and is able to take two weeks off of work. AYSHA works for [employer] and si able to take off work for a maternity leave. 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 Infant Supplies:?Parents state that they have obtained all necessary baby supplies for baby, including: car seat, safe sleep space, clothes, diapers and wipes. ? Childcare/Caregiver(s):?MOB will be the primary caregiver to baby along with FOB. When they need help with childcare they have maternal grandma. Transportation:?Both parents have their drivers license and reliable means of transportation. No barriers at this time. ? Programs/Agencies Involved: ???Parents are not connected to community resources at this time. They were provided with list of local [facility] agencies that may be able to assist them if they needed any thing. Children Services/Legal Issues:??? No history of involvement, no issues or concerns warranting referral to be made at this time. Behavioral Health Issues: ??Mental Health History:?FOB denies mental health history. MOB states that she has been diagnosed with anxiety, however this is mostly situational. MOB states that she struggled mostly in college and was prescribed a PRN medication at one point in time, but does not take it any longer. ?MOB states that she was anxious during her because she was sick a lot of the time. ? Substance Use History:??Parents deny substance use prior to or during . Family History:Parents deny family history of substance use/ addiction and deny significant mental health diagnoses. ? Drug Screens: No drug screens observed during chart review. Family/Social Stressors:? Parents deny any issues, concerns or stressors at this time. Support Systems: MOB states that friends, family and FOB are their biggest supports. Depression/Shaken Baby/Safe Sleeping:? Bakari educated parents on signs and symptoms of baby blues and depression and anxiety to be on the lookout for. Parents express understanding. MOB states that she feels really good with her mental tahira since delivering baby. MOB states that being in the mental health professional she feels prepared and educated on what signs and symptoms to look for. FOB states that he would be able to recognize if MOB were to struggle and he would know how to help and support her. Sw educated parents on shaken baby prevention and ABCs of safe sleep. Parents express understanding. ASSESSMENT:? MOB and baby are admitted following labor and delivery. MOB and FOB were observed providing loving and appropriate hands on care of . Parents made and maintained eye contact throughout completion of psychosocial assessment. Parents have obtained all necessary baby supplies and have natural supports in place. Parents were provided with literature on mood disorders to be on the lookout for, Help Me Grow, [facility], shaken baby prevention and ABCs of safe sleep. PLAN:?MOB and baby to be discharged when medically ready. ?No other services requested or indicated. Peggy Callaway, [employer]ST FRONT PRESSER, SCHOOL RESOURCE OFFICER
== END 2024-03-09 11:19 | disposition home or self-care (01) | DRG 807 ==
PROVIDERS: Obstetrics & Gynecology; Admitting Provider Advanced Practice Midwife; PCP Family Medicine; Visit Provider Advanced Practice Midwife
DX: O36.5930 Maternal care for other known or suspected poor fetal growth, third trimester, not applicable or unspecified (principal); Z37.0 Single live birth; Z3A.36 36 weeks gestation of pregnancy
CPT/HCPCS: 59025; 59050; 85025; 85461; 86780; 86850; 86870; 86900; 86901; 88307; 90384; 99221; G0378; J2405; J2790; J2791

== ENCOUNTER → 2025-06-22 | Outpatient (CLI) | payer OTHER, SELFPAY ==
[2025-06-22 13:02] LABS: AST(SGOT) 19 U/L (<=31); Alanine Aminotransfer ALT/SGPT 12 U/L (<=34); Albumin, Serum 4.5 g/dL (3.5-5.0); Alkaline Phosphatase 53 U/L (35-104); Anion Gap 10 (5-15); BUN 11 mg/dL (4-19); BUN/Creat Ratio 13.3 RATIO (10-20); Calcium,Total 9.4 mg/dL (7.6-11.0); Carbon Dioxide 24.3 mmol/L (21.0-32.0); Chloride 107 mmol/L (98-108); Ferritin 46 ng/mL (22-378); Globulin 2.3 g/dL (2.2-4.2); Glucose 80 mg/dL (70-99); Potassium 4.4 mmol/L (3.3-5.1)
[2025-06-23 12:36] LABS: Free T3 3.3 pg/mL (2.18-3.98)
[2025-06-23 13:11] LABS: Hematocrit 41.5 % (37-47); Hemoglobin 13.7 g/dL (12.0-15.0); Immature Granulocytes Count 0.000 X10^3/uL (0.0-0.0); Mean Corp Hgb Conc 33.0 g/dL (32-36); Mean Corpuscular Volume 92.2 fL (81-99); Mean Platelet Vol. 11.0 fl (6.2-12.0); NRBC Flagged by Analyzer 0 % (0-5); Platelet Count 222 K/mm3 (150-450); RBC Distribution Width CV 12.4 % (11.6-14.6); RBC Distribution Width SD 41.7 fl (35.1-43.9); Red Blood Count 4.50 M/mm3 (4.2-5.4); White Blood Count 4.2 K/mm3 (4.4-11.0)
== END | disposition home or self-care (01) ==
LOC: BFHLAB 09:05
PROVIDERS: PCP Family Medicine; Visit Provider Family Medicine
DX: K29.60 Other gastritis without bleeding (principal); E03.9 Hypothyroidism, unspecified; R11.10 Vomiting, unspecified
CPT/HCPCS: 36415; 80053; 82728; 84439; 84443; 84481; 85025; 86376; 86800